=== PATIENT | female | born 1970 | race Caucasian/White ===

== ENCOUNTER 2016-11-12 07:27 | Outpatient (CLI) | payer BC ==
[~2016-11-12] VITALS: Ht 162.6 cm; Wt 79.5 kg
--- NOTE | ~2016-11-12 | HEMODYNAMI ---
PATIENT:MELISSA MINAYA MEDICAL RECORD: [id number] : 66 LOCATION:[facility] ADMISSION DATE: 11/12/16 Generatedon:11/12/201612:20 Patient name: MELISSA MINAYA Patient #: [id number] SSN: : 1970 Date of study: 11/12/2016 Page: Of Hemodynamic Procedure Report Patient Data Patient Demographics Procedure consent was obtained First Name: MELISSA Gender: Female Last Name: MARIMAR : 1970 Middle Initial: L Age: 46 year(s) Patient #: [id number] Race: Unknown Additional ID: [id number] Contact details Address: [address] [place] [address] DRIVE State: [place] City: [place] Zip code: [address] Admission Admission Data Admission Date: 11/12/2016 Admission Time: 7:27 Procedure Procedure Types Cath Procedure Peripheral Cath Diagnostic Procedure Miscellaneous Procedure Description Procedure Date Procedure Date: 11/12/2016 Procedure Start Time: 11:06 Procedure Staff Name Function Noah Carrion MD Performing Physician Melba Vora RT Scrub Keke Lucas RN Nurse Jakob Kaye RT Monitor Procedure Data Cath Procedure Fluoroscopy Diagnostic fluoroscopy Total fluoroscopy dose: 418 dose: 418 mGy mGy Procedure Medications Medication Administration Route Dosage Oxygen NC 3 l/min Lidocaine 1% added to field 20 Heparin Flush Bag added to field 1 bags (1000units/500ml NS) Fentanyl I.V. 50 mcg Versed I.V. 1 mg Benadryl I.V. 50 mg Ancef (1Gm/50ml NS) I.V.P.B 1 g Fentanyl I.V. 50 mcg Versed I.V. 1 mg Versed I.V. 1 mg Fentanyl I.V. 50 mcg Versed I.V. 1 mg Fentanyl I.V. 25 mcg Fentanyl I.V. 25 mcg Fentanyl I.V. 25 mcg Versed I.V. 0.5 mg Fentanyl I.V. 25 mcg Hemodynamics Rest Heart Rate: 80 (bpm) Snapshots Pre Cath Intra NCS Post Cath Vital Signs Time Heart Resp SPO2 NIBP (mmHg) Rhythm Pain Sedation Rate (ipm) (%) Status Level (bpm) 10:40:17 86 33 95 112/101(109) NSR 0 (11) 10(A) , No pain 10:44:23 77 23 95 114/81(106) NSR 0 (11) 10(A) , No pain 10:48:31 88 18 94 118/79(101) NSR 0 (11) 10(A) , No pain 10:52:39 93 16 94 112/84(108) NSR 0 (11) 10(A) , No pain 10:57:36 82 12 95 114/73(110) NSR 0 (11) 9(A) , No pain 11:01:46 87 10 97 108/68(104) NSR 0 (11) 9(A) , No pain 11:05:55 88 10 96 108/60(100) NSR 0 (11) 9(A) , No pain 11:10:03 82 9 97 97/69(86) NSR 0 (11) 9(A) , No pain 11:14:44 91 9 95 126/112(118) NSR 0 (11) 9(A) , No pain 11:18:58 78 8 92 103/69(92) NSR 0 (11) 9(A) , No pain 11:23:45 90 11 90 112/63(87) NSR 0 (11) 9(A) , No pain 11:27:50 78 9 90 117/82(93) NSR 0 (11) 9(A) , No pain 11:32:00 79 10 93 123/72(102) NSR 0 (11) 9(A) , No pain 11:36:08 76 9 92 116/74(107) NSR 0 (11) 9(A) , No pain 11:40:16 74 9 95 114/83(94) NSR 0 (11) 9(A) , No pain 11:45:09 98 16 88 115/95(100) NSR 0 (11) 9(A) , No pain 11:50:00 94 9 95 101/72(98) NSR 0 (11) 9(A) , No pain 11:54:01 87 11 96 116/79(96) NSR 0 (11) 9(A) , No pain 11:58:09 93 9 96 89/77(85) NSR 0 (11) 9(A) , No pain 12:02:07 89 10 95 104/81(97) NSR 0 (11) 9(A) , No pain 12:07:18 92 10 96 111/67(87) NSR 0 (11) 9(A) , No pain 12:11:18 88 10 94 117/82(100) NSR 0 (11) 10(A) , No pain 12:15:30 83 12 94 123/70(99) NSR 0 (11) 10(A) , No pain Medications Time Medication Route Dose Verified Delivered Reason Notes E ffectiveness by by 10:25:05 Lidocaine 1% added 20ml Keke Keke for local to vial King BETH Lucas BETH anesthetic field 10:25:16 Heparin Flush added 1 Keke Keke used for Bag to bags Lance BETH Lance refrigeration person (1000units/500ml field NS) 10:25:48 Oxygen NC 3 Keke Ekke Per protocol l/min King BETH Lucas BETH 10:32:52 Benadryl I.V. 50 mg Keke Keke for sedation King BETH Lucas RN 10:40:06 Ancef (1Gm/50ml I.V.P.B 1 g Keke Keke prophylactic NS) King BETH Lucas BETH 10:52:31 Fentanyl I.V. 50 Keke Keke for sedation mcg King BETH Lucas RN 10:52:45 Versed I.V. 1 mg Keke Keke for sedation King BETH Lucas BETH 10:58:13 Fentanyl I.V. 50 Keke Keke for sedation mcg King BETH Lucas RN 10:58:18 Versed I.V. 1 mg Keke Keke for sedation King BETH Lucas RN 11:05:27 Versed I.V. 1 mg Keke Keke for sedation King BETH Lucas BETH 11:09:27 Fentanyl I.V. 50 Keke Keke for sedation mcg King BETH Lucas BETH 11:13:06 Versed I.V. 1 mg Keke Keke for sedation King BETH Lucas BETH 11:22:54 Fentanyl I.V. 25 Keke Keke for sedation mcg King BETH Lucas BETH 11:30:06 Fentanyl I.V. 25 Keke Keke for sedation mcg King BETH Lucas RN 11:36:35 Fentanyl I.V. 25 Keke Keke for sedation mcg Lance BETH Lucas RN 11:41:35 Versed I.V. 0.5 Keke Keke for sedation mg King BETH Lucas RN 11:50:00 Fentanyl I.V. 25 Keke Keke for sedation mcg King BETH Lucas RN Procedure Log Time Note 10:22:03 Jakob Kaye RT (R) (CV) sent for patient. Start room use. 10:22:09 Time tracking: Regular hours 10:22:14 Plan of Care:Hemodynamics will remain stable., Cardiac rhythm will remain stable., Comfort level will be maintained., Respiratory function will remain adequate., Patient/ family verbilizes understanding of procedure., Procedure tolerated without complication., Recovers from procedure without complications.. 10:22:21 Patient received from Outpatients to IR Alert and oriented. Tansferred to table in Prone position. 10:22:22 Correct patient and procedure confirmed by team. 10:22:24 Signed procedure consent form obtained from patient. 10:22:25 ECG and BP/O2 sat monitors applied to patient. 10:22:26 Full Disclosure recording started 10:22:30 - 10:22:33 H&P Date Dictated: 11/12/2016 H&P Addendum completed by physician on day of procedure. (MUST COMPLETE FOR ALL OUTPATIENTS). 10:22:34 Pre-procedure instructions explained to patient. 10:22:35 Pre-op teaching completed and patient verbalized understanding. 10:22:36 Family in waiting room. 10:22:38 Patient NPO since Midnight. 10:22:44 Is the patient allergic to Iodine/contrast media? No. 10:22:46 Is patient on blood thinner?No 10:22:53 Patient diabetic? Yes. 10:22:55 If diabetic: On Metformin? Yes 10:23:01 If on Metformin: Last Dose? 11/11/2016 10:23:02 - 10:23:03 ----Pre-sedation anethsthesia assessment.---- 10:23:05 Previous problem with sedation/anesthesia? No ? 10:23:06 Snore? Yes 10:23:07 Sleep apnea? Yes 10:23:08 Deviated septum? No 10:23:09 Opens mouth fully? No 10:23:11 Sticks out tongue? Yes 10:23:14 Airway obstruction? Yes ? 10:23:16 Dentures? No ? 10:23:26 Patient pain scale 0/10 no pain. 10::39 IV patent on arrival in right forearm with 0.9% NaCl at [facility]. 10::41 Sharps counted by scrub and verified by R.N. 10::41 Alarms reviewed by RArmando N. 10:25:05 Lidocaine 1% 20ml vial added to field was given by Keke Lucas RN; for local anesthetic; 10:25:16 Heparin Flush Bag (1000units/500ml NS) 1 bags added to field was given by Keke Lucas RN; used for procedure; 10:25:48 Oxygen 3 l/min NC was given by Keke Lucas RN; Per protocol; 10:32:52 Benadryl 50 mg I.V. was given by Keke Lucas RN; for sedation; 10:39:22 Vital chart was started 10:39:27 Baseline sample Acquired. 10:39:31 Rhythm: sinus rhythm 10:39:45 Use device set IR Diagnostic 10:39:46 Sterile Angiographic Pack opened to sterile field. 10:39:47 Bag Decanter opened to sterile field. 10:40:06 Ancef (1Gm/50ml NS) 1 g I.V.P.B was given by Keke Lucas RN; prophylactic; 10:52:02 Lumbar area was prepped with dura-prep and draped in sterile fashion 10:52:05 Physician arrived 10:52:05 --------ALL STOP TIME OUT------ 10:52:06 Final Timeout: patient, procedure, and site verified with staff and physician. All members of the team are in agreement. 10:52:10 Lumbar site verified by team. 10:52:14 Physical assessment completed. ASA score P 2 - A patient with mild systemic disease as per Noah Carrion MD. 10:52:19 Sedation plan: IV Moderate Sedation Versed, Fentanyl 10:52:31 Fentanyl 50 mcg I.V. was given by Keke Lucas RN; for sedation; 10:52:45 Versed 1 mg I.V. was given by Keke Lucas RN; for sedation; 10:53:00 Procedure started. 10:58:13 Fentanyl 50 mcg I.V. was given by Keke Lucas RN; for sedation; 10:58:18 Versed 1 mg I.V. was given by Keke Lucas RN; for sedation; 11:05:24 SHERINE CANNULA ACCESS 10 G NEEDLE opened to sterile field. 11:05:24 SHERINE CANNULA ACCESS 10 G NEEDLE opened to sterile field. 11:05:24 SHERINE CANNULA ACCESS 10 G NEEDLE opened to sterile field. 11:05:25 SHERINE CANNULA ACCESS 10 G NEEDLE opened to sterile field. 11:05:25 SHERINE AUTOPLEX MIXER W/VHV opened to sterile field. 11:05:27 Versed 1 mg I.V. was given by Keke Lucas RN; for sedation; 11:06:31 Local anesthetic to Lumbar area with Lidocaine 1% by Noah Carrion MD.INITIAL ACCESS ONLY 11:09:27 Fentanyl 50 mcg I.V. was given by Keke Lucas RN; for sedation; 11:13:06 Versed 1 mg I.V. was given by Keke Lucas RN; for sedation; 11:22:54 Fentanyl 25 mcg I.V. was given by Keke Lucas RN; for sedation; 11:30:06 Fentanyl 25 mcg I.V. was given by Keke Lucas RN; for sedation; 11:36:35 Fentanyl 25 mcg I.V. was given by Keke Lucas RN; for sedation; 11:41:35 Versed 0.5 mg I.V. was given by Keke Lucas RN; for sedation; 11:50:00 Fentanyl 25 mcg I.V. was given by Keke Lucas RN; for sedation; 12:05:53 cement lot [id number] 12:15:57 Procedure ended.(Physican Out) 12:18:10 Fluoroscopy dose: 418 mGy 12:18:10 Flurop Dose total: 418 12:18:12 Sharps counted by scrub and verified by R.N. 12:18:14 Insertion/operative site no bleeding no hematoma. 12:18:22 Post Lumbar area:stable 12:18:27 Patient transfered to Outpatients with Bed. 12:18:31 Post Procedure Pulses reassessed and unchanged 12:18:34 Post-procedure physical assessment completed. ASA score P 2 - A patient with mild systemic disease as per Noah Carrion MD. 12:18:37 Post procedure rhythm: unchanged. 12:18:39 Post procedure instruction explained to patient.Patient verbalizes understanding. 12:18:41 Procedure and supply charges have been captured, reviewed, submitted an d are correct. 12:18:43 Report given to Outpatients. 12:20:10 Vital chart was stopped Device Usage Item Name Manufacture Quantity Catalog Hospital Part Current Minim al Lot# / Number Charge Number Stock Stock Serial# Code Sterile [place] 1 [id number] 5 Angiographic Health Pack Bag Decanter [employer] 1 [id number] [employer] SHERINE [place] 4 [id number] 5 CANNULA ACCESS 10 G NEEDLE SHERINE [place] 1 [id number] [id number] 5 AUTOPLEX MIXER W/VHV Signature Audit [place] Stage Time Signature Unsigned Intra-Procedure 11/12/2016 Jakob 12:20:07 PM Mikki RT (R) (CV) Signatures Monitor : Jakob Signature : Mikki RT Date : Time : [place] [id number] [place] [address]
[~2016-11-12 07:27] MED LIST: ADDERALL 20 MG20 M1 PO; ADIPEX-P37.5 M1 PO; BENADRYL25 MG PO; BUPROPION XL300 MG PO; CELEXA20 MG PO; FOLIC ACID1 MG PO; GLUCOPHAGE1000 MG PO; HYDROCODONE-APA1 TAB PO; LEXAPRO20 MG PO; MAGNESIUM OXID250 MG; MOBIC7.5 MG PO; PRILOSEC20 MG PO; PROMETRIUM200 MG PO; PROZAC40 MG PO; VITAMIN D5000 UNIT PO
[2016-11-12 08:24] VITALS: Ht 162.6 cm; Wt 79.5 kg
[2016-11-12 08:26] LABS: BASOPHILS 0.3 % (0.0-2.0); EOSINOPHILS 2.4 % (0-7); HEMATOCRIT 40.2 % (36.0-48.0); HEMOGLOBIN 13.1 g/dL (12-16); MCH 30.3 pg (26.0-34.0); MCHC 32.6 g/dL (31.0-37.0); MCV 93.1 fL (80.0-100.0); MEAN PLATELET VOLUME 8.2 fL (7.4-10.4); MONOCYTES 10.4 % (2-11); NEUTROPHILS 65.9 % (40-80); PLATELET COUNT 267 10x3/uL (130-400); RBC 4.32 10x6/uL (4.00-5.40); RDW 13.9 % (11.5-14.5); WBC 3.4 10x3/uL (4.8-10.8)
[2016-11-12 08:31] LABS: INR 0.84 (0.85-1.17); PROTIME 11.4 SECONDS (11.6-15.0)
[2016-11-12 08:41] LABS: ANION GAP 12.4 mmol/L (8-16); CALCIUM 9.6 mg/dL (8.5-10.1); CARBON DIOXIDE 29.8 mmol/L (21.0-32.0); CREATININE - SERUM 0.9 mg/dL (0.6-1.3); POTASSIUM - SERUM 4.2 mmol/L (3.5-5.1)
--- NOTE | 2016-11-12 12:39 | NUR ---
NORCO 5MG PO FOR C/O PAIN TO PELVIC AREA. SEE POST PROCEDURE VITAL SIGN SHEET FOR VITAL SIGNS.
--- NOTE | 2016-11-12 16:00 | NUR ---
DISCHARGE INSTRUCTIONS GIVEN, VOICED UNDERSTANDING. DISCHARGED HOME VIA WC. SEE VITAL SIGN SHEET FOR VITAL SIGNS.
== END 2016-11-12 16:00 | disposition home or self-care (01) ==
LOC: D.OPS 07:27 → D.SP 10:00 → D.OPS 16:00
PROVIDERS: Radiology Diagnostic Radiology
DX: M87.38 Other secondary osteonecrosis, other site (principal); Y84.2 Radiological procedure and radiotherapy as the cause of abnormal reaction of the patient, or of later complication, without mention of misadventure at the time of the procedure; C20 Malignant neoplasm of rectum; M84.68XA Pathological fracture in other disease, other site, initial encounter for fracture

== ENCOUNTER → 2017-01-24 09:25 | Outpatient (CLI) | payer BC ==
[2016-11-12 08:24] VITALS: BMI 30.1
== END | disposition home or self-care (01) ==
LOC: D.CT 09:25
DX: R91.1 Solitary pulmonary nodule (principal)

== ENCOUNTER 2017-02-14 08:49 | Outpatient (CLI) | payer BC ==
[~2017-02-14] VITALS: Ht 162.6 cm; Wt 80.0 kg
[2017-02-14 09:34] LABS: APTT 25.8 SECONDS (22.8-39.4); INR 0.79 (0.85-1.17); PROTIME 10.8 SECONDS (11.6-15.0)
[2017-02-14 09:36] LABS: ANION GAP 13.8 mmol/L (8-16); CALCIUM 8.7 mg/dL (8.5-10.1); CARBON DIOXIDE 27.7 mmol/L (21.0-32.0); POTASSIUM - SERUM 4.5 mmol/L (3.5-5.1)
[2017-02-14 09:38] LABS: HEMATOCRIT 36.7 % (36.0-48.0); HEMOGLOBIN 12.3 g/dL (12-16); LYMPHOCYTES 19.9 % (15-50); MCH 30.8 pg (26.0-34.0); MCHC 33.5 g/dL (31.0-37.0); MEAN PLATELET VOLUME 7.4 fL (7.4-10.4); NEUTROPHILS 62.7 % (40-80); RBC 3.99 10x6/uL (4.00-5.40); RDW 13.6 % (11.5-14.5); WBC 3.1 10x3/uL (4.8-10.8)
[2017-02-14 10:02] LABS: PLATELET COUNT 349 10x3/uL (130-400)
[2017-02-14] MEDS ORDERED: CELEXA20 MG PO (10:53)
[2017-02-14 11:00] VITALS: BP 110/77; Ht 162.6 cm; Wt 80.0 kg
--- NOTE | 2017-02-14 13:35 | NUR ---
1255-RECD TO ROOM FROM INTERVENTIONAL RADIOLOGY POST CT LUNG BIOPSY. DROWSY, AROUSES EASILY. O2 ON PER NC. IV PATENT. R CHEST DRESSING DRY AND INTACT. DENIES PAIN/NAUSEA.
--- NOTE | 2017-02-14 13:52 | NUR ---
1340-REGULAR LUNCH TRAY SERVED.
== END 2017-02-14 17:55 | disposition home or self-care (01) ==
LOC: D.OPS 08:49 → D.CT 11:00 → D.SP 11:00 → D.CT 13:00 → D.OPS 17:55
PROVIDERS: Radiology Diagnostic Radiology
DX: C20 Malignant neoplasm of rectum (principal); C78.01 Secondary malignant neoplasm of right lung; C50.919 Malignant neoplasm of unspecified site of unspecified female breast

== ENCOUNTER 2018-10-19 08:00 | Outpatient (CLI) | payer BC ==
[2017-02-14 11:00] VITALS: BMI 30.2
== END 2018-10-19 09:00 | disposition home or self-care (01) ==
LOC: D.MAMMO 08:00
DX: Z12.31 Encounter for screening mammogram for malignant neoplasm of breast (principal)

== ENCOUNTER → 2021-03-18 12:38 | Outpatient (CLI) | payer BC ==
[2017-02-14 11:00] VITALS: BMI 30.2
--- NOTE | 2021-03-20 08:32 | ST ---
PATIENT:MELISSA MINAYA MEDICAL RECORD: [id number] SEX: F LOCATION:[facility] ORDER #: ADMISSION DATE: 03/18/21 AGE OF PATIENT: 50 REFERRING PHYSICIAN: INTERPRETING PHYSICIAN: LUCIO LU MD DATE OF SERVICE: 03/18/2021 PROCEDURE: Treadmill stress test. Baseline ECG is normal. Exercised for 8 minutes on Deangelo protocol. Maximum heart rate is 153 beats per minute, greater than 85% max predicted. No ECG changes of ischemia. No symptoms of ischemia. No blood pressure response to exercise. No arrhythmias noted. Good exercise tolerance for age. TRANSINT:[id number] Voice Confirmation ID: [id number] DOCUMENT ID: [id number] LUCIO LU MD at 0832 CC: [id number] DICTATION DATE: 03/19/21 1451 CONTENT STRATEGY LEAD: 03/19/21 1708 DEP CLI 03/18/21 [facility] [address] [place] [address]
== END | disposition home or self-care (01) ==
LOC: D.HCCECHO 12:38
PROVIDERS: ATTEND Internal Medicine Interventional Cardiology
DX: R06.09 Other forms of dyspnea (principal)